=== PATIENT | male | born 2000 | race Caucasian/White ===

== ENCOUNTER 2018-12-21 07:04 | Emergency (ER) | payer MEDICAID, SELFPAY ==
--- NOTE | 2018-12-21 07:05 | ED.GENADUL_ITS ---
Discharge Plan Disposition Patient Disposition: HOME Condition: Good Discharge Details Chief Complaint: RashLesion Clinical Impression: Ringworm Primary Care Provider: None,None ED Provider: Homero Vizcaino Home Meds and New Rx's Prescriptions: New clotrimazole 1 % ointment 1 applic TP BID Qty: 56.7 RF: 0 Discharge Instructions Instructions: Tinea Pedis (ED) Additional Instructions: You have ringworm. Please apply the antifungal ointment twice daily. Please change her socks 1-2 times per day. Do not get your feet wet. If you notice any worsening of your symptoms, or any new symptoms such as vomiting, diarrhea, fever, chills, shortness of breath, chest pain, numbness, weakness, or fainting , please return immediately to the emergency department for reevaluation. Please follow up with your primary care provider as soon as possible for reassessment and reevaluation. As always, it was a pleasure participating in your medical care today. Medical Decision Making This is a 18-year-old male with no significant past medical history who presents today for complaint of a lesion on the dorsum of his left foot. Is been present for the last week. Is itchy. Exam demonstrates signs and symptoms clinically consistent with ringworm. Will treat with Chlortrimazole. Recommend close follow-up and return for worsening of symptoms. Also recommended that he change his socks daily and keep his feet dry at all times. I have extensively reviewed the treatment plan and discharge instructions with the patient and t family. I have addressed all patient concerns at this time. The patient and family was made aware of what symptoms to monitor for that would warrant a return to the emergency department. Discussed the plan with the patient and family, they demonstrate verbal understanding and agreement with our assessment and plan at this time. HPI General Date/Time Provider Initiated Documentation: 12/21/18 07:05 . HPI Narrative: This is a 18-year-old male with no significant past medical history who presents today for evaluation of a lesion on his left foot. Patient states for the past 7 days he has had this lesion. It is circular on the dorsum of his foot. It is notably itchy. He states that he has been changing his socks usually once every 2 to 3 days. He did have a similar lesion on his left shoulder which was also notably itchy but has gotten better on its own. He denies any complaints of fever, chills, oral lesions, or other complaints. He denies any other modifying factors Related Data Home Medications Medication Instructions Recorded Confirmed clotrimazole 1 applic TP BID #56.7 gm 12/21/18 Previous Rx's Medication Instructions Recorded clotrimazole 1 applic TP BID #56.7 gm 12/21/18 Review of Systems Review of Systems All systems reviewed & are unremarkable except as noted in HPI and below PFSH Social History Smoking/Tobacco Use Status: Never Alcohol Intake: never Substance use type: does not use Do you feel safe at home: Yes Do you feel safe in your relationship?: Yes Exam Narrative Exam Narrative: 1.Const: Well-nourished, Well-developed, appearing stated age 2.Eyes: PERRL, no conjunctival injection, and symmetrical lids. 3.ENT: Atraumatic external nose and ears. Moist MM. Neck: Symmetric, trachea midline, No thyromegaly. 4.CVS: +S1/S2, No murmurs or gallops. Peripheral pulses 2+ and equal in all extremities. Brisk capillary refill in all extremities. 5.RESP: Unlabored respiratory effort. Clear to auscultation bilaterally. No wheezes rales or rhonchi 6.GI: Soft, Nontender/Nondistended, No hepatosplenomegaly. No guarding or rebound. 7.MSK: Normocephalic/Atraumatic, Extremities w/o deformity or ttp No cyanosis or clubbing, Normal movement of all extremities 8.Skin: Warm, Dry. There is a circular lesion on the dorsum of his left foot, diameter is 2 cm. Raised circular flaky border, and a mildly flaky center. Pruritic. No active bleeding. Clinically consistent with tinea pedis/ring warm. Negative Nikolsky sign. No large vesicles or bulla. No palpable purpura. No oral lesions. No mucosal lesions. No evidence of severe cellulitis. No evidence of vaccine preventable rash. 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 Sensation grossly intact, no focal neurologic deficits. 10.Psych: (AAO) x3. Appropriate mood and affect
[2018-12-21 07:21] VITALS: BP 120/74; PULSE 57; RESP 16; TEMP 37.1; O2SAT 98
== END 2018-12-21 07:20 | disposition home or self-care (01) ==
PROVIDERS: Emergency Provider Student in an Organized Health Care Education/Training Program
DX: B35.3 Tinea pedis (principal)
CPT/HCPCS: 99283

== ENCOUNTER 2019-03-10 10:59 | Outpatient (REF) | payer MEDICAID, SELFPAY ==
[2019-03-10 13:58] LABS: ALT 29 U/L (16-63); AST 20 U/L (15-37); Albumin 4.1 g/dL (3.4-5.0); Alkaline Phosphatase 106 U/L (46-116); Anion Gap 5.6 mmol/L (3-11); BUN 14 mg/dL (7-18); Bilirubin, Total 0.3 mg/dL (0.2-1.0); CO2 31.4 mmol/L (21.0-32.0); CREATININE 0.93 mg/dL (0.70-1.30); Calcium 9.1 mg/dL (8.5-10.1); Chloride 105 mmol/L (98-107); Glucose 78 mg/dL (70-100); Potassium 4.3 mmol/L (3.5-5.1); Sodium 142 mmol/L (136-145); Total Protein 7.3 g/dL (6.4-8.2)
[2019-03-10 14:19] LABS: HCT 46.8 % (40.0-50.0); HGB 15.3 g/dL (13.5-17.5); Mean Corp. HGB Concentration 32.7 g/dL (32.0-36.0); Mean Corpuscular Hemoglobin 30.8 pg (27.0-33.0); Mean Corpuscular Volume 94.2 fL (80-95); Mean Platelet Volume 11.4 fL (8.0-11.0); Platelet Count 205 x1000/uL (130-400); RBC 4.97 m/cumm (4.50-6.00); RBC Distribution Width 12.8 % (11.8-14.1); White Blood Cell Count 6.95 k/cumm (4.4-10.8)
[2019-03-10 14:24] LABS: Bilirubin Negative (Negative); Blood Negative (Negative); Clarity Clear (Clear); Glucose Negative (Negative); Ketones Negative (Negative); Leukocyte Esterase Negative (Negative); Nitrite Negative (Negative); Urobilinogen 0.2 EU/dL (Up TO 0.2); pH 6.5 (5-8)
[2019-03-11 11:11] LABS: HBs Antibody, Quant <3.1 mIU/mL; Hepatitis B Surface Ab Negative
[2019-03-11 11:49] LABS: Hepatitis B Surface Ag Negative (NEGAT)
[2019-03-11 12:05] LABS: Hepatitis C Ab w Rflx HCV PCR Negative (NEGAT)
[2019-03-11 13:55] LABS: HSV Type 1 Ab, IgG Negative; HSV Type 2 Ab, IgG Positive; Syphilis Serology (RPR) Negative (Negative)
[2019-03-14 11:58] LABS: Chlamydia Result Negative; Specimen Description Urine
[2019-03-14 11:59] LABS: GC Result Negative
== END 2019-03-10 11:19 ==
LOC: NCHCN 10:59
PROVIDERS: PCP Nurse Practitioner Family; Visit Provider Nurse Practitioner Family
DX: Z20.2 Contact with and (suspected) exposure to infections with a predominantly sexual mode of transmission (principal); Z11.59 Encounter for screening for other viral diseases; Z11.3 Encounter for screening for infections with a predominantly sexual mode of transmission; Z01.84 Encounter for antibody response examination
CPT/HCPCS: 80053; 85027; 86706; 86803; 87340; 87491; 87591; 81003; 86592; 86695; 86696

== ENCOUNTER 2020-04-18 18:41 | Outpatient (REF) | payer MEDICAID, SELFPAY ==
[2020-04-18 13:49] LABS: Abs Immature Grans 0.01 10^3/uL (0.0-0.06); Absolute Basophil Count 0.06 10^3/uL (0.0-0.2); Absolute Eosinophil Count 0.23 10^3/uL (0.0-0.7); Absolute Lymphocyte Count 3.68 10^3/uL (1.2-3.4); Absolute Monocyte Count 0.63 10^3/uL (0.1-0.8); Basophils % 0.8; Eosinophils % 3.2; HCT 48.5 % (40.0-50.0); HGB 16.1 g/dL (13.5-17.5); Immature Grans % 0.1; MCH 31.4 pg (27.0-33.0); MCHC 33.2 % (32.0-36.0); MCV 94.7 fL (80-95); MPV 11.1 fL (8.0-11.0); Monocytes % 8.7; Neutrophils % 36.2; Nucleated RBC 0 %; Platelet Count 237 10^3/uL (130-400); RBC 5.12 10^6/uL (4.36-5.78); RDW-SD 42.3 fL; WBC 7.21 10^3/uL (4.4-10.8)
[2020-04-18 14:09] LABS: Anion Gap 6.7 mmol/L (3-11); BUN 16 mg/dL (7-18); C-Reactive Protein 0.08 mg/dL (0.0-0.3); CO2 28.3 mmol/L (21.0-32.0); CREATININE 1.19 mg/dL (0.70-1.30); Calcium 9.2 mg/dL (8.5-10.1); Chloride 105 mmol/L (98-107); Glucose 84 mg/dL (74-106); Potassium 4.2 mmol/L (3.5-5.1); Sodium 140 mmol/L (136-145); TSH (W/Ref FT4) 1.51 uIU/mL (0.36-3.74)
[2020-04-18 14:29] LABS: ESR 6 mm/hr (0-15)
[2020-04-19 14:33] LABS: ANA Interpretation Negative (Negative)
== END 2020-04-18 19:01 ==
LOC: LBN 18:41
PROVIDERS: PCP Nurse Practitioner Family; Visit Provider Nurse Practitioner Family
DX: L63.8 Other alopecia areata (principal)
CPT/HCPCS: 80048; 85652; 84443; 85025; 86038; 86140

== ENCOUNTER 2021-09-10 21:10 | Emergency (ER) | payer MEDICAID, SELFPAY ==
[2021-09-10 21:24] VITALS: BP 123/59; PULSE 87; RESP 18; TEMP 36.3; O2SAT 100
--- NOTE | 2021-09-10 22:47 | W.ED.GENAD ---
Discharge Plan Disposition Patient Disposition: HOME Condition: Stable Discharge Details Clinical Impression: Acute viral syndrome Primary Care Provider: Ilia Isabel ED Provider: Jerod Blount Home Meds and New Rx's Prescriptions: Continued clotrimazole 1 % ointment 1 applic TP BID Qty: 56.7 0RF Discharge Instructions Instructions: Viral Syndrome (ED) Additional Instructions: Please drink plenty of fluids and allow for plenty of rest. You may have COVID. Please stay home and isolate until COVID test is negative. Please contact your primary care physician to arrange follow-up. Return to the ER immediately for any worsening or new concerning symptoms. Stand Alone Forms: Work Release Referrals: Ilia Isabel NUCLEAR ENGINEER [Primary Care Provider] - Medical Decision Making 20yo male here with fatigue, body aches, chills, headache today patient is hemodynamically stable. He is well-appearing. He has no headache at this time. No meningeal signs. Abdominal exam is benign. Suspect viral illness. Supportive care recommended. I will check COVID as the patient is unvaccinated and recent community prevalence is high. Medical screening exam was performed. Patient stable for discharge. Patient was encouraged to follow-up with his primary care physician. Usual customary discharge instructions reviewed with patient. HPI General Mode of arrival: ambulatory. Date/Time Provider Initiated Documentation: 09/10/21 21:56. Limitations to Documentation: no limitations. Information obtained by: patient. HPI Narrative: 20-year-old male here with chief complaint of fatigue. Patient notes fatigue today that was moderate. He has associated chills, body aches and headache. No modifiers. Patient is not vaccinated for COVID. He took a home COVID test that was negative. Patient denies cough or shortness of breath. No chest pain. No abdominal pain. He has no headache at this time. No neck stiffness Related Data Home Medications Medication Instructions Recorded Confirmed clotrimazole 1 % topical ointment 1 applic TP BID #56.7 gm 12/21/18 Previous Rx's Medication Instructions Recorded clotrimazole 1 % topical ointment 1 applic TP BID #56.7 gm 12/21/18 General Stated Complaint: GenMedical MARCE: 4 Review of Systems All systems reviewed & are unremarkable except as noted in HPI and below Constitutional Constitutional: Reports chills Respiratory Respiratory: Denies cough PFSH All Active Problems Acute viral syndrome (Acute) Social History Smoking/Tobacco Use Status: Current every day Tobacco Type: cigarettes Smoking risk assessment performed?: Yes Alcohol Intake: never Substance use type: does not use Do you feel safe at home: Yes Do you feel safe in your relationship?: Yes Exam Const General: cooperative and no acute distress HENMT Mouth: moist mucous membranes Eyes Conjunctivae: normal conjunctivae Sclera: normal sclerae Neck Neck: full ROM, no meningeal signs, trachea midline and supple Resp Auscultation: clear to auscultation bilaterally, no rales, no rhonchi and no wheezes Cardio Rate: regular rate and not tachycardic Rhythm: regular rhythm Heart Sounds: no click, no gallops, no murmurs and no rubs GI Palpation: soft, not firm, no guarding, no masses, not rigid and nontender Auscultation: normal bowel sounds Skin General skin exam: no rashes or lesions noted Neuro General: patient alert, patient awake and tone normal Speech: speech normal Motor: strength 5/5 throughout Sensory Exam: no sensory deficits noted Extrem General: no edema Psych Appearance: grossly normal Mental Status: mental status grossly normal Speech and Movement: speech and movement normal Course Vital Signs Vital signs: Vital Signs Temperature 36.3 C L 09/10/21 21:24 Pulse 87 09/10/21 21:24 Respiratory Rate 18 09/10/21 21:24 Blood Pressure 123/59 L 09/10/21 21:24 Pulse Oximetry 100 09/10/21 21:24 Temperature 36.3 C L 09/10/21 21:24 Temperature Source Tympanic 09/10/21 21:24 Pulse 87 09/10/21 21:24 Respiratory Rate 18 09/10/21 21:24 Respiratory Effort Non-Labored 09/10/21 21:27 Respiratory Depth Normal 09/10/21 21:27 Respiratory Pattern Normal 09/10/21 21:27 Blood Pressure 123/59 L 09/10/21 21:24 Pulse Oximetry 100 09/10/21 21:24 Oxygen Delivery Method Room Air 09/10/21 21:24 Oxygen Flow Rate 0 09/10/21 21:24
[2021-09-10 22:54] VITALS: BP 100/51; PULSE 86; RESP 18; O2SAT 98
[2021-09-12 12:35] LABS: COVID-19 RT-PCR UVMMC Result Presumptive Positive (Negative)
--- NOTE | 2021-09-13 10:59 | W.ED.FU ---
Follow Up Plan: Patient covid positive. I contacted patient and spoke with him about test result and covid specific recommendations provided. Patient notes that he is feeling well. No indication for paxlovid.
== END 2021-09-10 22:55 | disposition home or self-care (01) ==
PROVIDERS: Emergency Provider Student in an Organized Health Care Education/Training Program; PCP Nurse Practitioner Family
DX: U07.1 COVID-19 (principal); Z28.310 Unvaccinated for COVID-19
CPT/HCPCS: 99282; U0003

== ENCOUNTER 2023-09-01 10:08 | Emergency (ER) | payer SELFPAY ==
[2023-09-01 10:27] VITALS: BP 121/66; PULSE 77; RESP 20; TEMP 36.6; O2SAT 99
[2023-09-01 10:28] VITALS: BP 121/66; PULSE 77; RESP 20; TEMP 36.6; O2SAT 99
--- NOTE | 2023-09-01 10:35 | ED.GENADUL_ITS ---
Discharge Plan Disposition Patient Disposition: Home Condition: Good Discharge Details Clinical Impression: Acute conjunctivitis of right eye Primary Care Provider: Unknown,Unknown ED Provider: Homero Vizcaino Home Meds and New Rx's Prescriptions: No Action clotrimazole 1 % ointment 1 applic TP BID Qty: 56.7 0RF Discharge Instructions Instructions: Conjunctivitis (ED) Additional Instructions: At this time you demonstrate evidence of bacterial conjunctivitis in your right eye. Please apply 2 drops of the cipro drops every 4-6 hours in the right eye for the next week. If you do develop symptoms in your left eye you can apply the drops in the same fashion. If you notice any worsening of your symptoms, or any new symptoms such as vomiting, diarrhea, fever, chills, shortness of breath, chest pain, numbness, weakness, or fainting , please return immediately to the emergency department for reevaluation. Please follow up with your primary care provider as soon as possible for reassessment and reevaluation. As always, it was a pleasure participating in your medical care today. Discharge Data Discharge Date/Time-TO BE ENTERED AT DEPARTURE: 09/01/23 10:44 HPI General Date/Time Provider Initiated Documentation: 09/01/23 10:35 . HPI Narrative: This is a 22-year-old male with no significant past medical history who presents today for right eye irritation. Patient states that he woke up and his right eye was notably itchy and crusty this morning. After washing it he was able to open his eye. He denies any vision changes. He denies any pain in the sinusitis with mild itchiness. He denies having symptoms like this before. He denies any recent welding, UV exposure, or irritation or grinding. No other complaints at this time. The patient does not wear contact lenses Related Data Home Medications Medication Instructions Recorded Confirmed clotrimazole 1 % topical ointment 1 applic topical BID #56.7 grams 12/21/18 Previous Rx's Medication Instructions Recorded clotrimazole 1 % topical ointment 1 applic topical BID #56.7 grams 12/21/18 General Stated Complaint: EyeProblem MARCE: 4 Review of Systems All systems reviewed & are unremarkable except as noted in HPI and below Exam Narrative Exam Narrative: 1.Const: Well-nourished, Well-developed, appearing stated age 2.Eyes: PERRL, left eye unremarkable, right eye demonstrates notable conjunctival injection. No hyphema. Fluorescein staining reveals no signs of uptake, no dendritic lesions. No corneal abrasions. Pupils equal round reactive otherwise and vision is intact. No preseptal or postseptal cellulitis. No orbital tenderness. No range of motion restriction or entrapment. 3.ENT: Atraumatic external nose and ears. Moist MM. Neck: Symmetric, trachea midline, No thyromegaly. 4.CVS: +S1/S2, No murmurs or gallops. Peripheral pulses 2+ and equal in all extremities. Brisk capillary refill in all extremities. 5.RESP: Unlabored respiratory effort. Clear to auscultation bilaterally. No wheezes rales or rhonchi 6.GI: Soft, Nontender/Nondistended, No hepatosplenomegaly. No guarding or rebound. 7.MSK: Normocephalic/Atraumatic, Extremities w/o deformity or ttp No cyanosis or clubbing, Normal movement of all extremities 8.Skin: Warm, Dry. No rashes or lesions. 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 Sensation grossly intact, no focal neurologic deficits. 10.Psych: (AAO) x3. Appropriate mood and affect Course Vital Signs Vital signs: Vital Signs Temperature 36.6 C 09/01/23 10:27 Pulse 77 09/01/23 10:27 Respiratory Rate 20 09/01/23 10:27 Blood Pressure 121/66 09/01/23 10:27 Pulse Oximetry 99 09/01/23 10:27 Temperature 36.6 C 09/01/23 10:28 Temperature Source Temporal Artery Scan 09/01/23 10:28 Pulse 77 09/01/23 10:28 Respiratory Rate 20 09/01/23 10:28 Respiratory Effort Normal 09/01/23 10:28 Blood Pressure 121/66 09/01/23 10:28 Blood Pressure Position Sitting 09/01/23 10:28 Pulse Oximetry 99 09/01/23 10:28 Oxygen Delivery Method Room Air 09/01/23 10:28 Oxygen Flow Rate 0 09/01/23 10:28 Pain Level 0 09/01/23 10:28 Medical Decision Making This is a 22-year-old male with no significant past medical history who presents today for right eye irritation. Patient states that he woke up and his right eye was notably itchy and crusty this morning. After washing it he was able to open his eye. He denies any vision changes. He denies any pain in the sinusitis with mild itchiness. He denies having symptoms like this before. He denies any recent welding, UV exposure, or irritation or grinding. No other complaints at this time. The patient does not wear contact lenses Exam demonstrates mild right-sided conjunctivitis, left eye unremarkable. No pre or postseptal cellulitis. No evidence of orbital cellulitis. No pain in the eyeball itself otherwise. No stain uptake on fluorescein staining. S ymptoms appear consistent with mild bacterial conjunctivitis. Will give Cipro drops for treatment, recommend NSAIDs as needed. Discussed red flags for which to return. Symptoms inconsistent with acute angle-closure glaucoma. I have extensively reviewed the treatment plan and discharge instructions with the patient. I have addressed all patient concerns at this time. The patient was made aware of what symptoms to monitor for that would warrant a return to the emergency department. Discussed the plan with the patient, they demonstrate verbal understanding and agreement with our assessment and plan at this time. The documentation in this chart was dictated using [employer] dictation software. Please excuse any dictation errors. Quality:SDOH Health Related Social Needs: No Data to Display PFSH All Active Problems (Updated 09/01/23 @ 10:38 by Homero Vizcaino DO) Acute conjunctivitis of right eye (Acute) Social History Smoking/Tobacco Use Status: Current every day Tobacco Type: cigarettes Smoking risk assessment performed?: Yes Alcohol Intake: never Substance use type: does not use Do you feel safe at home: Yes Do you feel safe in your relationship?: Yes PAWSS Have you Been Recently Intoxicated or Drunk Within the Last 30 days?: No Have you Ever Experienced Previous Episodes of Alcohol Withdrawal?: No Have you ever Experienced Withdrawal Seizures?: No Have you ever Experienced Delirium Tremens(DT)s?: No Have you ever undergone Alcohol Rehabilitation Treatment (i.e, inpt ot outpatient treatment programs)?: No Have you ever Experienced Blackouts?: No Have you ever Combined Alcohol with other Downers within the last 90 days?: No Have you ever Combined Alcohol with any other Substance of Abuse during the last 90 days?: No Positive Blood Alcohol level on Presentation? [PCS.BAL]: No Evidence of Increased Autonomic Activity (i.e. HR>120, tremor, sweating, agitation, nausea)?: No Result: 0
[2023-09-01] MEDS: Fluorescein STRIPS 100/BOX 1 MG (10:40)
[2023-09-01] MEDS: Tetracaine 0.5% 4 ML BTL (10:40)
[2023-09-01] MEDS: Ciprofloxacin 0.3% 2.5 ML BTL OD (10:41)
== END 2023-09-01 10:44 | disposition home or self-care (01) ==
LOC: ER 10:52
PROVIDERS: Emergency Provider Student in an Organized Health Care Education/Training Program
DX: H10.31 Unspecified acute conjunctivitis, right eye (principal)
CPT/HCPCS: 99283

== ENCOUNTER 2023-09-09 20:11 | Emergency (ER) | payer SELFPAY ==
[2023-09-09 20:13] VITALS: BP 137/88; PULSE 87; RESP 16; TEMP 36.4; O2SAT 98
[2023-09-09] MEDS: Tetracaine 0.5% 4 ML BTL OP (21:28)
--- NOTE | 2023-09-09 21:43 | ED.GENADUL_ITS ---
Discharge Plan Disposition Patient Disposition: Home Condition: Stable Discharge Details Clinical Impression: Conjunctivitis of right eye Primary Care Provider: None,None ED Provider: Nancy Aleman Home Meds and New Rx's Prescriptions: No Action clotrimazole 1 % ointment 1 applic TP BID Qty: 56.7 0RF Discharge Instructions Instructions: Conjunctivitis (ED) Additional Instructions: Use the Polytrim eyedrops as directed 3 times daily for the next 5 to 7 days. Please follow-up with [facility] eye care for further evaluation. Do not rub the eye, you may use a warm washcloth compress. Wash your hands after touching your eye. Follow up with primary care provider in 3-5 days. Return to ED sooner if any worsening or concerns. Referrals: [facility] [Outside] - 2 days Discharge Data Discharge Date/Time-TO BE ENTERED AT DEPARTURE: 09/09/23 21:56 HPI General Mode of arrival: ambulatory . Date/Time Provider Initiated Documentation: 09/09/23 20:25 . Limitations to Documentation: no limitations . Information obtained by: patient, RN notes reviewed and old records reviewed . HPI Narrative: 22-year-old male presents to the ER chief complaint of right irritation in his right eye. He was seen on Thursday a week ago and was treated for conjunctivitis. Since that he has not had improved but had to help change oil on a car and got worse again. He is finished his antibiotics. Eye is diffusely injected and tearful. No purulent drainage noted no corneal abrasion noted. He was taking Cipro eyedrops. Related Data Home Medications Medication Instructions Recorded Confirmed clotrimazole 1 % topical ointment 1 applic topical BID #56.7 grams 12/21/18 09/09/23 Previous Rx's Medication Instructions Recorded clotrimazole 1 % topical ointment 1 applic topical BID #56.7 grams 12/21/18 Allergies Allergy/AdvReac Type Severity Reaction Status Date / Time Penicillins Allergy Unknown unknown Verified 09/09/23 20:16 General Stated Complaint: EyeProblem MARCE: 4 Review of Systems All systems reviewed & are unremarkable except as noted in HPI and below Constitutional Constitutional: Reports as per HPI and Reports system reviewed and no additional complaints, except as documented Eyes Eyes: Reports as per HPI, Reports irritation, Reports itchy eyes and Reports other (Redness, tearing) Allergic/Immunologic Allergic/Immunologic: Reports itchy eyes Exam Eyes Alignment and Position: alignment normal Periorbital: periorbital findings normal Eyelids: eyelids normal Conjunctivae: conjunctival abnormality right conjunctival injection diffuse Sclera: sclerae normal Cornea: corneas normal (No corneal abrasion noted no uptake and dye no visualized foreign body) and fluorescein used Pupils: PERRL EOM: EOM intact bilaterally Direct ophthalmoscopy: normal light reflex Course Vital Signs Vital signs: Vital Signs Temperature 36.4 C L 09/09/23 20:13 Pulse 87 09/09/23 20:13 Respiratory Rate 16 09/09/23 20:13 Blood Pressure 137/88 09/09/23 20:13 Pulse Oximetry 98 09/09/23 20:13 Temperature 36.4 C L 09/09/23 20:13 Temperature Source Temporal Artery Scan 09/09/23 20:13 Pulse 87 09/09/23 20:13 Respiratory Rate 16 09/09/23 20:13 Respiratory Effort Normal, Non-Labored 09/09/23 20:17 Blood Pressure 137/88 09/09/23 20:13 Blood Pressure Position Sitting 09/09/23 20:13 Pulse Oximetry 98 09/09/23 20:13 Oxygen Delivery Method Room Air 09/09/23 20:13 Oxygen Flow Rate 0 09/09/23 20:13 Pain Level 0 09/09/23 20:13 Medical Decision Making 22-year-old male presents to the ER chief complaint of right irritation in his right eye. He was seen on Thursday a week ago and was treated for conjunctivitis. Since that he has not had improved but had to help change oil on a car and got worse again. He is finished his antibiotics. Eye is diffusely injected and tearful. No purulent drainage noted no corneal abrasion noted. He was taking Cipro eyedrops. No uptake and dye with Meade lamp fluorescein exam. He does have some irritation noted to the corneal surface, no visualized foreign body noted I will give him Polytrim antibiotics 3 times a day for the next 5 to 7 days. Discussed home care and follow-up care he verbalized understanding. This text was generated using [employer] system, please disregard any oddities of phrase or misspellings. Medical Records Medical records reviewed: Yes I reviewed the patient's medical records. Medical records narrative: Records from last ED visit. Quality:SDOH Health Related Social Needs: No Data to Display PFSH All Active Problems (Updated 09/09/23 @ 21:47 by Nancy Aleman NP) Conjunctivitis of right eye (Acute) Acute conjunctivitis of right eye (Acute) Social History Smoking/Tobacco Use Status: Current every day Tobacco Type: cigarettes Smoking risk assessment performed?: Yes Alcohol Intake: never Drug use: Occasionally Substance use type: marijuana Do you feel safe at home: Yes Do you feel safe in your relationship?: Yes
[2023-09-09 21:45] VITALS: BP 137/88; PULSE 87; RESP 16; TEMP 36.4; O2SAT 98
[2023-09-09 21:48] VITALS: BP 120/78; PULSE 72; RESP 14; TEMP 36.6; O2SAT 98
[2023-09-09] MEDS: Polymyxin B/Trimethoprim Ophth Soln 10 ML BTL OD (21:50)
[2023-09-09 21:54] VITALS: BP 120/78; PULSE 71; RESP 14; TEMP 36.6; O2SAT 98
== END 2023-09-09 21:56 | disposition home or self-care (01) ==
PROVIDERS: Emergency Provider Registered Nurse Emergency
DX: H10.9 Unspecified conjunctivitis (principal); F17.210 Nicotine dependence, cigarettes, uncomplicated
CPT/HCPCS: 99283

== ENCOUNTER 2025-02-25 19:59 | Emergency (ER) | payer SELFPAY ==
--- NOTE | 2025-02-25 20:00 | DI.RAD_ITS ---
Exam(s) XR HAND RT COMPLETE EXAM: XR HAND RT COMPLETE CLINICAL HISTORY: hit R 3-5th knuckle w/ pain. TECHNIQUE: 2D digital imaging was performed of the right hand. Three images were obtained. AP, lateral and oblique views were obtained. COMPARISON: CR RIGHT LITTLE FINGER from 01/10/2012 FINDINGS: BONES: No acute fracture is present. No bony destructive lesion is seen. JOINTS: No dislocation present. SOFT TISSUE: Normal. IMPRESSION: 1. Unremarkable radiographs of the right hand. 2. The preliminary [facility] report was reviewed. DATA REPOSITORY: RADIATION DOSE DELIVERED:
[2025-02-25 20:01] VITALS: BP 137/72; PULSE 69; RESP 16; TEMP 36.2; O2SAT 97
--- NOTE | 2025-02-25 20:15 | W.ED.GENAD ---
Discharge Plan Disposition Patient Disposition: Home Condition: Good Discharge Details Clinical Impression: Injury of hand, right Primary Care Provider: None,None ED Provider: Homero Vizcaino Home Meds and New Rx's Prescriptions: No Action No Known Home Meds Discharge Instructions Instructions: Hand fracture Additional Instructions: At this time there is no evidence of large fracture on your x-ray. We will contact you if the radiology report shows something different or significant. In the meantime please take Tylenol Motrin for pain, keep the small cut/abrasion clean and bandage. Do not hesitate to apply triple antibiotic ointment or bacitracin to the area. If after 1 week of rest and NSAID therapy you still have continued significant pain you may require repeat x-rays. If you notice any worsening of your symptoms, or any new symptoms such as vomiting, diarrhea, fever, chills, shortness of breath, chest pain, numbness, weakness, or fainting , please return immediately to the emergency department for reevaluation. Please follow up with your primary care provider as soon as possible for reassessment and reevaluation. As always, it was a pleasure participating in your medical care today. HPI General Date/Time Provider Initiated Documentation: 02/25/25 20:00. HPI Narrative: This is a pleasant 24-year-old male who is right-hand dominant. Status is who presents today for trauma to his right hand. Patient was at work at [employer] when he slipped, and accidentally punched the ground with his hand when he was falling. He hit his 3rd, 4th and 5th knuckle. He injured his small cut to the the area between the 4th and 5th digit, and had pain in the 3rd through 5th knuckle. This occurred about 30 minutes prior to arrival. He came to the ER for further assessment. He has pain with movement of the fingers at the 0.7 calls. He denies numbness or tingling. No other trauma, pain, or other complaints at this time. Related Data Home Medications ?Medication ?Instructions ?Recorded ?Confirmed Unknown [No Known Home Meds] 02/25/25 02/25/25 Allergies Allergy/AdvReac Type Severity Reaction Status Date / Time Penicillins Allergy Unknown unknown Verified 02/25/25 20:06 General Stated Complaint: Orthopedic MARCE: 4 Exam Narrative Exam Narrative: 1.Const: Well-nourished, Well-developed, appearing stated age 2.Eyes: PERRL, no conjunctival injection, and symmetrical lids. 3.ENT: Atraumatic external nose and ears. Moist MM. Neck: Symmetric, trachea midline, No thyromegaly. 4.CVS: +S1/S2, Peripheral pulses 2+ and equal in all extremities. Brisk capillary refill in all extremities. 5.RESP: Unlabored respiratory effort. Clear to auscultation bilaterally. No wheezes rales or rhonchi 6.GI: Soft, Nontender/Nondistended, No hepatosplenomegaly. No guarding or rebound. 7.MSK: Right hand: Symmetrically palpable radial and ulnar pulses. Capillary refill less than 2 seconds to all digits. Intact sensation to light touch of the radial, median and ulnar nerves demonstrated by testing in the dorsal web space of the thumb, the distal palmar aspect of the index finger, and the lateral surface of the fifth finger. 2 point discrimination intact to 5mm (up to 6mm can be normal in digits 3-5) of discrimination in the affected digit. 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 No evidence of rotational abnormality with flexion of all 5 digits in the right hand. Intact recurrent median nerve as demonstrated by ability to move thumb fully through opposition, abduction and flexion. No snuffbox tenderness. There is tenderness over the 3rd, 4th and 5th knuckle, as well as the distal aspect of the 3rd through 5th metacarpals. No significant tenderness otherwise. Notably small subcentimeter abrasion/notably superficial laceration in the webspace between the 4th and 5th digit. No active bleeding. 8.Skin: Warm, Dry. No rashes or lesions. 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 Sensation grossly intact, no focal neurologic deficits. 10.Psych: (AAO) x3. Appropriate mood and affect Course Vital Signs Vital signs: Vital Signs Temperature 36.2 C L 02/25/25 20:01 Pulse 69 02/25/25 20:01 Respiratory Rate 16 02/25/25 20:01 Blood Pressure 137/72 02/25/25 20:01 Pulse Oximetry 97 02/25/25 20:01 Temperature 36.2 C L 02/25/25 20:01 Temperature Source Tympanic 02/25/25 20:01 Pulse 69 02/25/25 20:01 Respiratory Rate 16 02/25/25 20:01 Blood Pressure 137/72 02/25/25 20:01 Blood Pressure Position Sitting 02/25/25 20:01 Pulse Oximetry 97 02/25/25 20:01 Oxygen Delivery Method Room Air 02/25/25 20: Oxygen Flow Rate 0 02/25/25 20:01 Pain Level 6 02/25/25 20:07 Medical Decision Making This is a pleasant 24-year-old male who is right-hand dominant. Status is who presents today for trauma to his right hand. Patient was at work at [employer] when he slipped, and accidentally punched the ground with his hand when he was falling. He hit his 3rd, 4th and 5th knuckle. He injured his small cut to the the area between the 4th and 5th digit, and had pain in the 3rd through 5th knuckle. This occurred about 30 minutes prior to arrival. He came to the ER for further assessment. He has pain with movement of the fingers at the 0.7 calls. He denies numbness or tingling. No other trauma, pain, or other complaints at this time. There is tenderness over the 3rd, 4th and 5th knuckle, as well as the distal aspect of the 3rd through 5th metacarpals. No significant tenderness otherwise. Notably small subcentimeter abrasion/notably superficial laceration in the webspace between the 4th and 5th digit. No active bleeding. He otherwise demonstrates normal movement with no abnormality or significant deficit or deformity of the hand. Normal sensation. Normal vascular exam. Symptoms are concerning for contusion and bruise, with potential for fracture. Will get x-ray, update his tetanus, give Motrin, monitor closely and reassess. 8:30 PM x-ray shows no evidence of large fracture. Suspect bruise and contusion. Patient will be discharged home with Rx for NSAIDs. Discussed red flags for which to return. I have extensively reviewed the treatment plan and discharge instructions with the patient. I have addressed all patient concerns at this time. The patient was made aware of what symptoms to monitor for that would warrant a return to the emergency department. Discussed the plan with the patient, they demonstrate verbal understanding and agreement with our assessment and plan at this time. The documentation in this chart was dictated using Dragon dictation software. Please excuse any dictation errors. FINDINGS: Bones/joints: Three views of the right hand reveal no acute fracture or dislocation. Soft tissues: No gross focal soft tissue abnormality is seen. IMPRESSION: No acute fracture or dislocation seen in the right hand. Thank you for allowing us to participate in the care of your patient. Dictated and Authenticated by: Rolly Townsend MD 02/25/2025 9:42 PM Eastern Time ([place] & [place]) [facility] All Active Problems (Updated 02/25/25 @ 20:35 by Homero Vizcaino DO) Injury of hand, right (Acute) Social History Smoking/Tobacco Use Status: Current every day Tobacco Type: cigarettes Smoking risk assessment performed?: Yes Alcohol Intake: never Drug use: Daily Substance use type: marijuana Do you feel safe at home: Yes Do you feel safe in your relationship?: Yes
[2025-02-25] MEDS: Ibuprofen 800 MG TAB PO (20:21)
[2025-02-25] MEDS: Diph,Pertuss(Acell),Tet Vac/Pf 0.5 ML SYR IM (20:21)
--- NOTE | 2025-02-25 21:42 | DI.VRAD_ITS ---
PROCEDURE INFORMATION: Exam: XR Right Hand Exam date and time: 02/25/2025 8:26 PM Age: 24 years old Clinical indication: Other: Hit RT 3-5th knuckle w/ pain TECHNIQUE: Imaging protocol: Radiologic exam of the right hand. Views: 3 or more views. COMPARISON: No relevant prior studies available. FINDINGS: Bones/joints: Three views of the right hand reveal no acute fracture or dislocation. Soft tissues: No gross focal soft tissue abnormality is seen. IMPRESSION: No acute fracture or dislocation seen in the right hand. Dictated and Authenticated by: Rolly Townsend MD. Orderin Charis Valentin MD
== END 2025-02-25 20:52 | disposition home or self-care (01) ==
LOC: ER 21:05
PROVIDERS: Emergency Provider Student in an Organized Health Care Education/Training Program
DX: S60.921A Unspecified superficial injury of right hand, initial encounter (principal); Z23 Encounter for immunization; W01.198A Fall on same level from slipping, tripping and stumbling with subsequent striking against other object, initial encounter; Y93.01 Activity, walking, marching and hiking; Y92.511 Restaurant or cafe as the place of occurrence of the external cause; Y99.0 Civilian activity done for income or pay; F17.210 Nicotine dependence, cigarettes, uncomplicated
CPT/HCPCS: 90471; 90715; 99283; 73130